=== PATIENT | female | born 1985 | race Caucasian/White ===

== ENCOUNTER 2017-03-17 04:52 | Inpatient (IN) | payer BC ==
[~2017-03-17] VITALS: Ht 175.3 cm; Wt 73.0 kg
--- NOTE | ~2017-03-17 | HP ---
ADMIT: 03/17/2017 RM/LOC: 222 [facility] MR#: [id number] [facility] [address] [place] [id number] HIRAM VERNON [address] [place] [address] History and Physical SEX: F AGE: 31 : 1985 DATE OF SERVICE: 03/17/2017 CHIEF COMPLAINT: Contractions. HISTORY OF PRESENT ILLNESS: The patient is a 31-year-old, 2, para 1-0- 0-1 female who presents at 39 weeks gestation in active spontaneous labor. She thought maybe she had ruptured at home, but had a negative AmniSure on arrival. She did progress though from 4 cm to 6 cm. She was kept for labor. She has had no leakage of fluid since. Her has been complicated by a succenturiate lobe of placenta noted on ultrasound. She is blood type O positive, antibody screen negative, serology nonreactive, group B strep negative, hepatitis B surface antigen negative, and she passed her 1 hour glucose. She has had mild anemia, she has been on iron replacement for it. No other problems. PAST MEDICAL HISTORY: The patient has had 1 prior vaginal delivery. She has also had a tonsillectomy and adenoidectomy, a right ACL repair and was hospitalized in 2010 with carbon monoxide poisoning. FAMILY HISTORY: No major medical issues in the family. SOCIAL HISTORY: The patient is and they live with an older daughter. No tobacco, alcohol, or drug use. PHYSICAL EXAM: Patient is afebrile and vitals were all normal. She is masood every 2-3 minutes. heart tones are around 130 and category I. Estimated weight is 7 to 7.5 pounds and she has an adequate pelvis. No edema. ASSESSMENT: 1. Intrauterine at 39 weeks gestation. 2. Succenturiate placenta. 3. Mild iron-deficiency anemia. PLAN: Anticipate normal spontaneous vaginal delivery. She has an epidural for anesthesia. I have discussed the possibility of manual exploration of the uterus after delivery if the placenta does not deliver with a low visualize. Kacie Will MD/ chay JOB #: [id number] CC: Kacie Will, Attending Physician Kacie Will, Family Physician
--- NOTE | ~2017-03-17 | FD ---
ADMIT: 03/17/2017 RM/LOC: 222 [facility] MR#: [id number] [address] [id number] HIRAM VERNON [facility] [place] [address] Final Diagnosis SEX: F AGE: 31 : 1985 ADMISSION DATE: 03/17/2017 DISCHARGE DATE: 03/18/2017 FINAL DIAGNOSES: 1. Term intrauterine . 2. Anemia of iron deficiency. PROCEDURES: Normal spontaneous vaginal delivery with second-degree perineal laceration repaired. No complications. Kacie Will MD/ chay JOB #: [id number] CC: Kacie Will MD, Attending Physician Kacie Will MD, Family Physician
[2017-03-19] MEDS ORDERED: IRON18 MG PO (15:32)
[2017-03-19] MEDS ORDERED: PRENATAL VIT1 TAB PO (15:32)
[2017-03-19] MEDS ORDERED: COLACE-DPS100 MG PO (15:32)
[2017-03-19] MEDS ORDERED: TUCKS1 EACH TP (15:33)
[2017-03-19] MEDS ORDERED: LAN-O-SOOTHE7 GM TP (15:33)
[2017-03-19] MEDS ORDERED: MOTRIN-DPS800 MG PO (15:33)
[2017-03-19] MEDS ORDERED: NIPPLECREAM TP (15:34)
--- NOTE | 2017-04-11 17:08 | OR ---
ADMIT: 03/17/2017 RM/LOC: 222 [facility] MR#: [id number] [id number] HIRAM VERNON [address] [place] [address] Operative/Delivery Room Report SEX: F AGE: 31 : 1985 SURGERY DATE: 03/17/2017 SURGEON: Kacie Will MD PROCEDURE: Normal spontaneous vaginal delivery. FINDINGS: Male delivered at 1253 hours in JEREMY position with a weight 7 pounds, 8 ounces. scores of 9 at 1 minute, 9 at 5 minutes. Intact placenta with a small succenturiate lobe noted, delivered spontaneously. Second-degree perineal tear, repaired. ESTIMATED BLOOD LOSS: 250 mL. ANESTHESIA: Epidural. INDICATIONS: The patient is a 31-year-old, 2 para 1-0-0-1 female who presented to the [facility] at 39 weeks gestation in active spontaneous labor. DESCRIPTION OF PROCEDURE: The patient was admitted and did receive an epidural for anesthesia. Her membranes were ruptured manually at about 1030 hours. She progressed over the next couple of hours to complete and pushed for about 30 minutes to deliver a vigorous male over an intact perineum at 1253 hours. Baby delivered in JEREMY position. No nuchal cords were noted. Remainder of delivered without difficulty. Cord blood was obtained. The placenta delivered intact with a 3-vessel cord. Did inspect the placenta and a small, about 3 cm succenturiate lobe was noted but contained within the membranes. I did manually explored the uterus carefully and no other segments of placenta were noted. The uterus was clamped down well and she had minimal bleeding at the end of the procedure. A small second- degree perineal tear was noted and repaired in normal fashion with 3-0 Vicryl. No complications were noted. Kacie Will MD/ chay JOB #: [id number] CC: Kacie Will, Attending Physician Kacie Will, Family Physician
== END 2017-03-18 15:15 | disposition home or self-care (01) | DRG 775 ==
LOC: BC 04:52 → 2LDRP 04:52
PROVIDERS: ADMIT Family Medicine
PROC: 0KQM0ZZ Repair Perineum Muscle, Open Approach (ICD-10-PCS; principal; 2017-03-17)
PROC: 10E0XZZ Delivery of Products of Conception, External Approach (ICD-10-PCS; principal; 2017-03-17)
DX: O99.02 Anemia complicating childbirth (principal); D64.9 Anemia, unspecified; O43.193 Other malformation of placenta, third trimester; O70.1 Second degree perineal laceration during delivery; Z3A.39 39 weeks gestation of pregnancy; Z37.0 Single live birth